=== PATIENT | female | born 1960 | race African-American/Black ===

== ENCOUNTER 2019-07-25 22:19 | Emergency (ER) | payer MEDICAID ==
[~2019-07-25] VITALS: Ht 157.5 cm; Wt 73.5 kg
[2019-07-26] MEDS ORDERED: KETOROLAC 60MG/2ML VIAL IM ONE (00:15)
[2019-07-26 01:06] VITALS: BP 145/74
== END 2019-07-26 01:07 | disposition home or self-care (01) ==
LOC: ER 22:19
DX: M54.5 Low back pain (principal); I10 Essential (primary) hypertension; Z98.890 Other specified postprocedural states
CPT/HCPCS: 96372; 99283; J1885

== ENCOUNTER 2020-11-18 16:22 | Emergency (ER) | payer MEDICAID ==
[~2020-11-18] VITALS: Ht 157.5 cm; Wt 81.0 kg
[2020-11-18] MEDS ORDERED: DIPHENHYDRAMINE 50MG/ML VIAL IV ONE (22:00)
[2020-11-18] MEDS ORDERED: METOCLOPRAMIDE HCL 10MG/2ML VIAL IV ONE (22:00)
[2020-11-18] MEDS ORDERED: SODIUM CHLORIDE 0.9% 1,000 ML IV ONE (22:00)
[2020-11-19 01:44] VITALS: BP 155/89
== END 2020-11-19 02:18 | disposition home or self-care (01) ==
LOC: ER 16:22
DX: G43.909 Migraine, unspecified, not intractable, without status migrainosus (principal); I10 Essential (primary) hypertension
CPT/HCPCS: 70450; 96361; 96374; 96375; 99284; J1200; J2765; J7030

== ENCOUNTER 2022-02-27 11:21 | Emergency (ER) | payer MEDICAID ==
[~2022-02-27] VITALS: Ht 167.6 cm; Wt 109.0 kg
[2022-02-27] MEDS ORDERED: PROCHLORPERAZINE 10MG/2ML VIAL IV PRN (11:45)
[2022-02-27] MEDS ORDERED: DIPHENHYDRAMINE 50MG/ML VIAL IV ONE (11:45)
[2022-02-27] MEDS ORDERED: SODIUM CHLORIDE 0.9% 1,000 ML IV ONE (11:45)
[2022-02-27 11:59] LABS: BASOPHILS % 1.2 % (0.0-2.0); EOSINOPHILS % 1.3 % (0.0-5.0); HEMATOCRIT. 41.5 % (36.0-48.0); HEMOGLOBIN. 14.1 g/dL (12.0-16.0); LYMPHOCYTES % 34.6 % (20.0-50.0); MEAN CORPUSCULAR HEMOGLOBIN 28.9 pg (28.0-32.0); MEAN CORPUSCULAR VOLUME 85.5 fL (81.0-99.0); MEAN PLATELET VOLUME 7.1 fl (7.4-10.4); MONOCYTES % 8.2 % (2.0-8.0); NEUTROPHILS % 54.7 % (40.0-76.0); PLATELET 318 x1000/uL (130-400); RED BLOOD CELL COUNT 4.86 mill/uL (4.2-5.4); RED CELL DISTRIBUTION WIDTH 14.4 % (11.6-14.6)
[2022-02-27 12:06] LABS: CHLORIDE 109 mEq/L (98-107)
[2022-02-27 12:19] LABS: INR 1.1; PROTHROMBIN TIME 11.5 sec (9.6-11.0)
[2022-02-27] MEDS ORDERED: LABETALOL HCL VIAL 20 MG/4 ML VIAL IV ONE (12:30)
[2022-02-27 14:54] VITALS: BP 148/81
== END 2022-02-27 15:06 | disposition home or self-care (01) ==
LOC: ER 11:47
DX: G43.909 Migraine, unspecified, not intractable, without status migrainosus (principal); I10 Essential (primary) hypertension; Z86.59 Personal history of other mental and behavioral disorders
CPT/HCPCS: 36415; 80053; 85025; 85610; 96361; 96374; 96375; 99284; J1200; J3490; J7030